=== PATIENT | male | born 1945 | race Caucasian/White ===

== ENCOUNTER 2021-05-08 14:04 | Emergency (ER) | payer MEDICARE ==
[2021-05-08] MEDS ORDERED: predniSONE 20 MG TAB ONE (18:30)
== END 2021-05-08 18:33 | disposition home or self-care (01) ==
LOC: ERS 14:04
DX: M54.50 Low back pain, unspecified (principal); G89.29 Other chronic pain; M19.90 Unspecified osteoarthritis, unspecified site; E10.9 Type 1 diabetes mellitus without complications; Z87.19 Personal history of other diseases of the digestive system
CPT/HCPCS: 72131; J7512

== ENCOUNTER 2021-05-10 12:34 | Outpatient (CLI) | payer MEDICARE | END 2021-05-10 12:35 | disposition home or self-care (01) | LOC: TBSIIMAG 12:34 | PROVIDERS: ATTEND Surgery | DX: M54.50 Low back pain, unspecified (principal); M47.816 Spondylosis without myelopathy or radiculopathy, lumbar region; M43.16 Spondylolisthesis, lumbar region; M48.061 Spinal stenosis, lumbar region without neurogenic claudication | CPT/HCPCS: 72148 ==

== ENCOUNTER 2021-05-15 15:26 | Outpatient (CLI) | payer MEDICARE | END 2021-05-15 15:27 | disposition home or self-care (01) | LOC: BICRAD 15:26 | PROVIDERS: ATTEND Family Medicine | DX: S71.132D Puncture wound without foreign body, left thigh, subsequent encounter (principal); R93.7 Abnormal findings on diagnostic imaging of other parts of musculoskeletal system ==

== ENCOUNTER 2021-11-16 16:45 | Outpatient (CLI) | payer MEDICARE | END 2021-11-16 16:46 | disposition home or self-care (01) | LOC: ERS 16:45 → ER/OP 16:46 | PROVIDERS: ATTEND Family Medicine | DX: S89.92XA Unspecified injury of left lower leg, initial encounter (principal) ==

== ENCOUNTER 2021-12-03 12:49 | Outpatient (CLI) | payer MEDICARE | END 2021-12-03 12:50 | disposition home or self-care (01) | LOC: BICULT 12:49 | PROVIDERS: ATTEND Internal Medicine Endocrinology, Diabetes & Metabolism | DX: E04.2 Nontoxic multinodular goiter (principal) | CPT/HCPCS: 76536 ==

== ENCOUNTER 2022-02-19 13:33 | Outpatient (CLI) | payer MEDICARE | END 2022-02-19 13:34 | disposition home or self-care (01) | LOC: ULT 13:33 | PROVIDERS: ATTEND Nurse Practitioner Family | DX: I49.3 Ventricular premature depolarization (principal); Z87.19 Personal history of other diseases of the digestive system | CPT/HCPCS: 76705 ==